=== PATIENT | male | born 1995 | race Caucasian/White ===

== ENCOUNTER 2019-07-23 19:10 | Outpatient (CLI) | payer SELFPAY | END 2019-07-23 19:11 | disposition critical access hospital (66) | LOC: EMS 19:10 | PROVIDERS: ATTEND Surgery | DX: R40.20 Unspecified coma (principal); R06.9 Unspecified abnormalities of breathing; R22.0 Localized swelling, mass and lump, head | CPT/HCPCS: A0425; A0427 ==

== ENCOUNTER 2019-07-23 19:29 | Emergency (ER) | payer SELFPAY ==
[2019-07-23 20:03] LABS: HGB - HEMOGLOBIN 16.1 g/dL (14.0-18.0); MEAN PLATELET VOLUME 10.1 fL (7.4-11.4)
[2019-07-23 20:07] LABS: BASOPHILS # (AUTO) 0.1 10^3/uL (0.0-0.1); BASOPHILS % (AUTO) 0.3 %; EOSINOPHILS # (AUTO) 0.1 10^3/uL (0.0-0.7); EOSINOPHILS % (AUTO) 0.4 %; LYMPHOCYTES % (AUTO) 11.9 %; MEAN CORPUSCULAR HEMOGLOBIN 29.7 pg (27.0-31.0); MEAN CORPUSCULAR HGB CONC 32.2 g/dL (32.0-36.0); MEAN CORPUSCULAR VOLUME 92.3 fL (80.0-94.0); MONOCYTES # (AUTO) 1.7 10^3/uL (0.0-1.0); MONOCYTES % (AUTO) 10.2 %; NEUTROPHILS # (AUTO) 12.8 10^3/uL (1.5-6.6); NEUTROPHILS % (AUTO) 76.6 %; PLT - PLATELET COUNT 264 10^3/uL (130-450); RED BLOOD COUNT 5.42 10^6/uL (4.70-6.10); RED CELL DISTRIBUTION WIDTH 12.2 % (12.0-15.0); WHITE BLOOD COUNT 16.6 x10^3/uL (4.8-10.8)
[2019-07-23 20:16] LABS: ALBUMIN 5.3 g/dL (3.2-5.5); ALBUMIN/GLOBULIN RATIO 1.7 (1.0-2.2); CALCIUM 9.3 mg/dL (8.5-10.3); CREATININE 0.9 mg/dL (0.6-1.2); TOTAL PROTEIN 8.5 g/dL (6.7-8.2)
--- NOTE | 2019-07-23 20:28 | ED Physician Documentation ---
PD HPI ALTERED MENTAL STATUS - Stated complaint Stated Complaint: ETOH - Chief complaint Chief Complaint: Neuro - History obtained from History obtained from: Patient - History of Present Illness Timing - onset: Today Timing - details: Now resolved Quality / character: Unresponsive Associated symptoms: No: Fever, Headache, Dyspnea, NVD Contributing factors: Intoxicated Basline status: Alert and oriented X 3, Ambulatory, Independent Treatment PRICE CLERK: Narcan Similar symptoms before: No diagnosis Recently seen: Not recently seen - Additional information Additional information: BIBA. Patient tells me I guess I passed out, and had some hypoxia. He says he had drank large amount of liquor tonight. He says he has had little sleep and has been eating less than usual due to being upset over recent of a friend (patient says he recently returned from [place] where he attended the ). He says he has had episodes of syncope or near-syncope in the past without diagnosis. Per medic report, friend found patient minimally responsive and called 911. medics arrived to find patient hypoxic, administered supplemental oxygen and gave patient narcan. Patient arrives AAOx3. Review of Systems Constitutional: reports: Reviewed and negative Cardiac: reports: Reviewed and negative Respiratory: reports: Reviewed and negative GI: reports: Reviewed and negative Musculoskeletal: reports: Reviewed and negative Neurologic: reports: Altered mental status. denies: Generalized weakness, Focal weakness, Numbness, Seizure, Headache, Head injury PD PAST MEDICAL HISTORY - Past Medical History Past Medical History: Yes - Past Surgical History Past Surgical History: Yes Ortho: Shoulder arthroplasty - Present Medications Home Medications: Ambulatory Orders Medication Instructions Recorded Confirmed No Known Home Medications 07/23/19 07/23/19 - Allergies Allergies/Adverse Reactions: Allergies Allergy/AdvReac Type Severity Reaction Status Date / Time No Known Drug Allergies Allergy Verified 07/23/19 19:37 - Social History Does the pt smoke?: Yes Smoking Status: Current some day smoker ETOH Use: Liquor PD ED PE NORMAL - Vitals Vital signs reviewed: Yes - General General: Alert and oriented X 3, No acute distress, Well developed/nourished - HEENT HEENT: Atraumatic, PERRL, EOMI, Moist mucous membranes - Neck Neck: No bony TTP - Cardiac Cardiac: No murmur - Respiratory Respiratory: No respiratory distress, Clear bilaterally - Derm Derm: Normal color, Warm and dry - Extremities Extremities: No deformity, Normal ROM s pain, No edema - Neuro Neuro: Alert and oriented X 3, pharmacy technician assistant 2-12 intact, No motor deficit, No sensory deficit, Normal speech Eye Opening: Spontaneous Motor: Obeys Commands Verbal: Oriented GCS Score: 15 PD ED PE EXPANDED - Cardiac Cardiac: Tachy, Regular Rhythm Results - Vitals Vitals: Oxygen O2 Source Room air - Labs Labs: Laboratory Tests 07/23/19 07/23/19 17:50 17:50 WBC 16.6 H RBC 5.42 Hgb 16.1 Hct 50.0 MCV 92.3 MCH 29.7 MCHC 32.2 RDW 12.2 Plt Count 264 MPV 10.1 Neut # (Auto) 12.8 H Lymph # (Auto) 2.0 Carson # (Auto) 1.7 H Eos # (Auto) 0.1 Baso # (Auto) 0.1 Absolute Nucleated RBC 0.00 Band Neuts % (Manual) Not Reportable Abnorm Lymph % (Manual) Not Reportable Nucleated RBC % 0.0 Neutrophils # (Manual) Not Reportable Lymphocytes # (Manual) Not Reportable Monocytes # (Manual) Not Reportable Eosinophils # (Manual) Not Reportable Basophils # (Manual) Not Reportable Differential Comment MANUAL=AUTO DIFF Manual Slide Review Indicated Platelet Estimate NORMAL (130-450,000) Platelet Morphology NORMAL APPEARANCE RBC Morph Micro Appear NORMAL APPEARANCE Sodium 142 Potassium 3.9 Chloride 101 Carbon Dioxide 28 Anion Gap 13.0 BUN 10 Creatinine 0.9 Estimated GFR (MDRD) 105 Glucose 116 H Calcium 9.3 Total Bilirubin 1.0 AST 30 ALT 32 Alkaline Phosphatase 72 Total Protein 8.5 H Albumin 5.3 Globulin 3.2 Albumin/Globulin Ratio 1.7 Lipase 25 Ethyl Alcohol 53.4 PD MEDICAL DECISION MAKING - ED course Complexity details: reviewed results, re-evaluated patient, considered differential, d/w patient ED course: Patient arrived via ambulance prior to the beginning of my shift and thus I was not present when medics gave report to ED staff. ED staff that received report inform me that narcan was given, but it is unclear whether there was a temporal response to this medication. He is AAOx3 during ED stay. He says he is unable to provide urine sample (due to not feeling like he has to urinate) and he and friend repeatedly asking for patient discharge home. I asked patient twice if drug use could be a factor and he answers not to my knowledge, and not that Im aware of. He insists he drank to excess tonight despite his alcohol level being 53.4 (0.05 JEFFY). Patient is AAOx3 and insists on discharge. I advised patient of his high blood pressure and tachycardia and instructed him to see his primary care provider regarding these findings. Departure - Departure Disposition: 01 Home, Self Care Clinical Impression: Altered mental status Qualifiers: Altered mental status type: unspecified Qualified Code(s): R41.82 - Altered mental status, unspecified Condition: Good Instructions: ED Altered Loc Follow-Up: [facility] Sumi Goyal [Provider Group] Forms: Activity restrictions Discharge Date/Time: 07/23/19 21:54
[2019-07-23 20:37] LABS: DIFFERENTIAL COMMENT MANUAL=AUTO DIFF; PLATELET ESTIMATE, MANUAL NORMAL (130-450,000) (NORMAL); PLATELET MORPHOLOGY NORMAL APPEARANCE (NORMAL); RBC MORPHOLOGY (MULTIPLE) NORMAL APPEARANCE (NORMAL)
[2019-07-23 21:54] VITALS: BP 160/103
== END 2019-07-23 21:54 | disposition home or self-care (01) ==
LOC: ED 19:29
DX: R41.82 Altered mental status, unspecified (principal); R03.0 Elevated blood-pressure reading, without diagnosis of hypertension; R00.0 Tachycardia, unspecified; F17.200 Nicotine dependence, unspecified, uncomplicated
CPT/HCPCS: 36415; 80053; 80320; 83690; 85025; 99284